=== PATIENT | male | born 1995 | race Caucasian/White ===

== ENCOUNTER 2016-06-01 01:48 | Emergency (ER) | payer OTHER ==
[~2016-06-01] VITALS: Ht 160 cm; Wt 64.1 kg
[~2016-06-01 01:48] MED LIST: NOHOMEMEDS
[2016-06-01] MEDS ORDERED: AMOXICILLIN875 MG PO (02:52)
[2016-06-01 03:01] VITALS: BP 124/66
== END 2016-06-01 03:02 | disposition home or self-care (01) ==
LOC: EME 01:48
DX: J02.9 Acute pharyngitis, unspecified (principal); R51 Headache
CPT/HCPCS: 99281; 99284